=== PATIENT | male | born 1990 | race African-American/Black ===

== ENCOUNTER 2018-02-19 15:20 | Emergency (ER) | payer MEDICAID ==
[~2018-02-19] VITALS: Ht 175.3 cm; Wt 91.0 kg
[2018-02-19] MEDS ORDERED: ACETAMINOPHEN 325MG TABLET PO ONE (17:15)
[2018-02-19 17:16] VITALS: BP 134/71
== END 2018-02-19 17:25 | disposition home or self-care (01) ==
LOC: ER 16:24
DX: M25.572 Pain in left ankle and joints of left foot (principal); J45.909 Unspecified asthma, uncomplicated
CPT/HCPCS: 73630; 99284

== ENCOUNTER 2019-05-08 08:05 | Emergency (ER) | payer MEDICAID ==
[~2019-05-08] VITALS: Ht 167.6 cm; Wt 90.0 kg
[2019-05-08 08:20] VITALS: BP 143/86
[2019-05-08] MEDS ORDERED: IBUPROFEN 800MG TABLET PO ONE (09:30)
== END 2019-05-08 10:59 | disposition home or self-care (01) ==
LOC: ER 08:05
DX: K02.9 Dental caries, unspecified (principal); J45.909 Unspecified asthma, uncomplicated
CPT/HCPCS: 99283

== ENCOUNTER 2019-07-29 13:25 | Emergency (ER) | payer MEDICAID ==
[~2019-07-29] VITALS: Ht 175.3 cm; Wt 85.0 kg
[2019-07-29 13:30] VITALS: BP 132/81
[2019-07-29] MEDS ORDERED: IBUPROFEN 800MG TABLET PO ONE (14:45)
== END 2019-07-29 14:49 | disposition home or self-care (01) ==
LOC: ER 13:25
DX: S02.5XXA Fracture of tooth (traumatic), initial encounter for closed fracture (principal); X58.XXXA Exposure to other specified factors, initial encounter; Y93.89 Activity, other specified; Y92.59 Other trade areas as the place of occurrence of the external cause
CPT/HCPCS: 99282